=== PATIENT | male | born 2000 ===

== ENCOUNTER 2018-05-26 19:15 | Emergency (ER) | payer OTHER ==
[2018-05-26 21:34] LABS: Hematocrit 46 % (42-52); Hemoglobin 15.8 g/dl (14.0-18.0); Mean Corpuscular HGB Conc 34 g/dl (31-36); Mean Corpuscular Hemoglobin 29 pg (27-31); Mean Corpuscular Volume 85 fL (80-94); Mean Platelet Volume 8.8 um3 (7.4-10.4); Platelet Count 240 10^3/ul (150-450); Red Cell Distribution Width 13 % (10.5-15); White Blood Count 9.9 10^3/ul (3.5-10.8)
[2018-05-26] MEDS ORDERED: NS 0.9% 1000 ML* 1,000 ML IV ONE (23:11)
[2018-05-26] MEDS ORDERED: Meclizine TAB* 12.5 MG PO ONE (23:11)
[2018-05-26] MEDS ORDERED: Ondansetron INJ* 2 MG/ML VIAL IV ONE (23:11)
[2018-05-26] MEDS ORDERED: Pantoprazole IV* 40 MG IV ONE (23:12)
--- NOTE | 2018-05-26 23:34 | ED ---
Neurological HPI - HPI Summary HPI Summary: A 18 y/o male presents to ED c/o dizziness. In the ED room, the patient has a pulse of 72 BPM, O2 saturation of 100% and blood pressure of 129/79. As per triage, "Pt states since waking up on Thursday after drinking he has been dizzy without nv. Mild headache. States hes been unable to eat. Dizziness not resolving". According to the patient, he was drinking Thursday and the next day he felt very dizzy. Since then the symptoms has not gone. He stated that he has appetite changes as he does not feel good after eating. Denies any vomiting or fever. He states that when he turns his head he experiences dizziness and cannot focus on anything. - History of Current Complaint Chief Complaint: EDDizziness Stated Complaint: DIZZY/NO APPETITE Time Seen by Provider: 05/26/18 22:59 Hx Obtained From: Patient Onset/Duration: Sudden Onset, Started days ago, Still Present Timing: Constant Current Severity: None Number of Seizures: 0 Pain Intensity: 2 Pain Scale Used: 0-10 Numeric Character: Dizzy Aggravating: Nothing Alleviating: Nothing Associated Signs and Symptoms: Positive: Negative - Allergy/Home Medications Allergies/Adverse Reactions: Allergies Allergy/AdvReac Type Severity Reaction Status Date / Time No Known Allergies Allergy Verified 05/26/18 19:23 PMH/Surg Hx/FS Hx/Imm Hx Endocrine/Hematology History: Denies: Hx Diabetes Cardiovascular History: Denies: Hx Hypertension Respiratory History: Denies: Hx Asthma - Surgical History Surgery Procedure, Year, and Place: Inguinal Hernia Infectious Disease History: No Infectious Disease History: Denies: Traveled Outside the [place] in Last 30 Days - Family History Known Family History: Positive: Diabetes, Other - POSITIVE: Breast Cancer - Social History Occupation: Student Alcohol Use: Occasionally Smoking Status (MU): Current Every Day Smoker Type: Cigarettes Review of Systems Negative: Fever Positive: Other - POSITIVE: Appetite changes. Negative: Vomiting, Nausea Neurological: Other - POSITIVE: Dizziness Positive: Headache All Other Systems Reviewed And Are Negative: Yes Physical Exam - Summary Physical Exam Summary: VITAL SIGNS: Reviewed. GENERAL: Patient is a well-developed and nourished male who is lying comfortable in the stretcher. Patient is not in any acute respiratory distress. HEAD AND FACE: No signs of trauma. No ecchymosis, hematomas or skull depressions. No sinus tenderness. EYES: PERRLA, EOMI x 2, No injected conjunctiva, no nystagmus. EARS: Hearing grossly intact. Ear canals and tympanic membranes are within normal limits. MOUTH: Oropharynx within normal limits. Pharyngeal erythema with no oxidate. NECK: Supple, trachea is midline, no adenopathy, no JVD, no carotid bruit, no c- spine tenderness, neck with full ROM. CHEST: Symmetric, no tenderness at palpation LUNGS: Clear to auscultation bilaterally. No wheezing or crackles. CVS: Regular rate and rhythm, S1 and S2 present, no murmurs or gallops appreciated. ABDOMEN: Soft, non-tender. No signs of distention. No rebound no guarding, and no masses palpated. Bowel sounds are normal. EXTREMITIES: FROM in all major joints, no edema, no cyanosis or clubbing. NEURO: Alert and oriented x 3. No acute neurological deficits. Speech is normal and follows commands. Vertigo induced with head movement SKIN: Dry and warm Triage Information Reviewed: Yes Vital Signs On Initial Exam: Initial Vitals Temp Pulse Resp BP Pulse Ox 98.9 F 68 15 135/70 100 05/26/18 19:21 05/26/18 19:21 05/26/18 19:21 05/26/18 19:21 05/26/18 19:21 Vital Signs Reviewed: Yes Diagnostics - Vital Signs Vital Signs Temp Pulse Resp BP Pulse Ox 05/26/18 22:17 98.2 F 66 15 112/74 100 05/26/18 19:21 98.9 F 68 15 135/70 100 - Laboratory Lab Results: Lab Results 05/26/18 05/26/18 Range/Units 21:29 21:29 WBC 9.9 (3.5-10.8) 10^3/ul RBC 5.40 (4.00-5.40) 10^6/ul Hgb 15.8 (14.0-18.0) g/dl Hct 46 (42-52) % MCV 85 (80-94) fL MCH 29 (27-31) pg MCHC 34 (31-36) g/dl RDW 13 (10.5-15) % Plt Count 240 (150-450) 10^3/ul MPV 8.8 (7.4-10.4) um3 Sodium 139 (135-145) mmol/L Potassium 3.7 (3.5-5.0) mmol/L Chloride 106 (101-111) mmol/L Carbon Dioxide 29 (22-32) mmol/L Anion Gap 4 (2-11) mmol/L BUN 12 (6-24) mg/dL Creatinine 0.89 (0.67-1.17) mg/dL Est GFR ( Amer) 131.9 (>60) Est GFR (Non-Af Amer) 109.0 (>60) BUN/Creatinine Ratio 13.5 (8-20) Glucose 108 H (70-100) mg/dL Calcium 9.6 (8.6-10.3) mg/dL Total Bilirubin 0.40 (0.2-1.0) mg/dL AST 17 (13-39) U/L ALT 13 (7-52) U/L Alkaline Phosphatase 49 (34-104) U/L Total Protein 7.1 (6.4-8.9) g/dL Albumin 4.7 (3.2-5.2) g/dL Globulin 2.4 (2-4) g/dL Albumin/Globulin Ratio 2.0 (1-3) Result Diagrams: 05/26/18 21:29 05/26/18 21:29 Lab Statement: Any lab studies that have been ordered have been reviewed, and results considered in the medical decision making process. Course/Dx - Course Course Of Treatment: A 18 y/o male presents to ED c/o dizziness. In the ED room , the patient has a pulse of 72 BPM, O2 saturation of 100% and blood pressure of 129/79. No laboratory scans were done. In the ED course, the patient recieved Protonix, Antivert, Zofran and IV fluids. Patient will be discharged with a diagnosis of benign positional vertigo. Patient is to follow up with PCP in 1-2 days. Patient is agreeable with this plan. - Diagnoses Provider Diagnoses: Benign positional vertigo Discharge - Sign-Out/Discharge Documenting (check all that apply): Patient Departure - DISCHARGE - Discharge Plan Condition: Stable Disposition: HOME Prescriptions: Meclizine HCl [Travel-Ease] 25 mg PO TID PRN #20 tablet PRN Reason: Dizziness Patient Education Materials: Vertigo (ED) Referrals: [facility] [Outside] - 2 Days Additional Instructions: FOLLOW UP WITH PRIMARY CARE IN 1-2 DAYS. RETURN TO ED FOR ANY NEW OR WORSENING SYMPTOMS. - Attestation Statements Document Initiated by Scribe: Yes Documenting Scribe: Jimbo King Provider For Whom Scribe is Documenting (Include Credential): Lisa Zelaya MD Scribe Attestation: Jimbo Soares, scribed for Lisa Zelaya MD on 05/27/18 at 0047.
[2018-05-27 01:00] VITALS: BP 111/57
== END 2018-05-27 01:08 | disposition home or self-care (01) ==
LOC: ED 19:15
DX: H81.10 Benign paroxysmal vertigo, unspecified ear (principal); R51 Headache; R42 Dizziness and giddiness; F17.210 Nicotine dependence, cigarettes, uncomplicated
CPT/HCPCS: 36415; 80053; 85027; 96365; 96366; 99283; A9270-GY; J2405

== ENCOUNTER 2018-07-14 11:31 | Emergency (ER) | payer OTHER ==
[2018-07-14] MEDS ORDERED: methylPREDNISolone 125 MG* 2 ML VIAL IV ONE (12:48)
[2018-07-14] MEDS ORDERED: NS 0.9% 1000 ML* 2,000 ML IV ONE (12:48)
[2018-07-14] MEDS ORDERED: Ketorolac INJ* 30 MG/ML 1 ML VIAL IV ONE (12:48)
--- NOTE | 2018-07-14 12:49 | ED ---
Influenza-Like Illness - HPI Summary HPI Summary: This pt is a 18 y/o male presenting to [facility] c/o fever, ear pain, sore throat, cough since 4 days ago. Pt additionally reports fatigue, headache, pain with swallowing. He notes his symptoms began 4 days ago. He went to [facility] 2 days ago and was tested for the flu that resulted negative. Pt since then has been taken Tylenol with mild relief, but states his fever stays around 100 F. He reports decreased PO intake since yesterday secondary to sore throat with swallowing. Denies chest pain, SOB, neck pain, nuchal rigidity. Denies any PMHx. - History of Current Complaint Chief Complaint: EDFluSymptoms Time Seen by Provider: 07/14/18 12:30 Hx Obtained From: Patient Onset/Duration: Lasting Days - 4, Still Present Severity: Moderate Associated Signs & Symptoms: Fever, F/C, Cough, Sore Throat, Headache - Allergy/Home Medications Allergies/Adverse Reactions: Allergies Allergy/AdvReac Type Severity Reaction Status Date / Time No Known Allergies Allergy Verified 07/14/18 11:51 Home Medications: Home Medications Acetaminophen [Tylenol Extra Strength] 1,000 mg PO Q6HR PRN 07/14/18 [History Confirmed 07/14/18] PMH/Surg Hx/FS Hx/Imm Hx Endocrine/Hematology History: Denies: Hx Diabetes Cardiovascular History: Denies: Hx Hypertension Respiratory History: Denies: Hx Asthma - Surgical History Surgery Procedure, Year, and Place: Inguinal Hernia - Immunization History Immunizations Up to Date: Yes Infectious Disease History: No Infectious Disease History: Denies: Traveled Outside the [place] in Last 30 Days - Family History Known Family History: Positive: Diabetes, Other - POSITIVE: Breast Cancer - Social History Alcohol Use: Occasionally Substance Use Type: Reports: None Smoking Status (MU): Former Smoker Type: Cigarettes Review of Systems Constitutional: Other - POS: decreased PO intake Positive: Fever, Fatigue Positive: Sore Throat, Ear Ache - bilateral Negative: Chest Pain Positive: Cough. Negative: Shortness Of Breath Negative: Other - neck pain or nuchal rigidity Positive: Headache All Other Systems Reviewed And Are Negative: Yes Physical Exam - Summary Physical Exam Summary: Appearance: Well appearing, no pain distress Skin: warm, dry, reflects adequate perfusion Head/face: normal Eyes: EOMI, CHENTE ENT: Pharynx is red and swollen. Right tonsil is enlarged. Left TM is red and bulging. Dry mucous membranes. Neck: supple, nontender Respiratory: CTA, breath sounds present Cardiovascular: Tachycardic, pulses symmetrical Abdomen: nontender, soft Musculoskeletal: normal, strength/ROM intact Neuro: normal, sensory motor intact, A&Ox3 Triage Information Reviewed: Yes Vital Signs On Initial Exam: Initial Vitals Temp Pulse Resp BP Pulse Ox 100.2 F 112 18 109/46 100 07/14/18 11:47 07/14/18 11:47 07/14/18 11:47 07/14/18 11:47 07/14/18 11:47 Vital Signs Reviewed: Yes - [place] Coma Scale Best Eye Response: 4 - Spontaneous Best Motor Response: 6 - Obeys Commands Best Verbal Response: 5 - Oriented Coma Scale Total: 15 Diagnostics - Vital Signs Vital Signs Temp Pulse Resp BP Pulse Ox 07/14/18 11:47 100.2 F 112 18 109/46 100 - Laboratory Result Diagrams: 07/14/18 13:12 07/14/18 13:12 Lab Statement: Any lab studies that have been ordered have been reviewed, and results considered in the medical decision making process. - Radiology Chest XR Radiology Interpretation Completed By: Radiologist Summary of Radiographic Findings: IMPRESSION: No active cardiopulmonary disease. Dr. Pettit has reviewed this report. - CT Brain CT CT Interpretation Completed By: Radiologist Summary of CT Findings: IMPRESSION: No acute intracranial pathology. Dr. Pettit has reviewed this report. Re-Evaluation - Re-Evaluation First Eval Re-Evaluation Time: 13:54 Change: Improved Comment: Pt reports feeling better with fluids. Second Eval Re-Evaluation Time: 14:32 Comment: Pt agrees with brain CT. Third Eval Re-Evaluation Time: 15:39 Comment: Pt declines lumbar puncture. He was given strict return to ED instructions. Flu Symptom Course/Dx - Course Assessment/Plan: Pt is a 18 y/o male who presents with fever, ear pain, sore throat, cough since 4 days ago. Pt additionally reports fatigue, headache, pain with swallowing. He notes his symptoms began 4 days ago. He went to [facility] 2 days ago and was tested for the flu that resulted negative. Pt since then has been taken Tylenol with mild relief, but states his fever stays around 100 F. He reports decreased PO intake since yesterday secondary to sore throat with swallowing. Denies chest pain, SOB, neck pain, nuchal rigidity. Blood work , rapid strep test, Chest XR, brain CT were obtained. Radid strep test is negative. Chest XR shows no active cardiopulmonary disease. Brain CT shows no acute intracranial pathology. In the ED course the pt was given IV fluids, Toradol, Solu-medrol. Pt declines lumbar puncture at present. He will be discharged home with follow up from PCP. Pt was given prescriptions for Motrin and Augmentin. Pt was instructed to return to the ED for any worsening or new symptoms. - Diagnoses Differential Diagnosis/HQI/PQRI: Positive: Pneumonia, Upper Respiratory Infection, Other - sepsis meningitis Provider Diagnoses: Otitis media, Fever Discharge - Sign-Out/Discharge Documenting (check all that apply): Patient Departure - Discharge home - Discharge Plan Condition: Stable Disposition: HOME Prescriptions: Amoxicillin/Clavulanate TAB* [Augmentin TAB 875*] 875 mg PO BID #20 tab Ibuprofen TAB* [Motrin TAB* 600 MG] 600 mg PO Q8H PRN #20 tab MDD 3 PRN Reason: Pain Patient Education Materials: Fever in Adults (ED), Ear Infection (ED) Referrals: [facility] [place] [Primary Care Provider] - Additional Instructions: Please follow up with your primary care provider in 3 days. RETURN TO THE ED FOR ANY WORSENING OR NEW SYMPTOMS. - Billing Disposition and Condition Condition: STABLE Disposition: Home - Attestation Statements Document Initiated by Dima: Yes Documenting Scribe: Lois Lewis Provider For Whom Dima is Documenting (Include Credential): Сергей Pettit MD Scribe Attestation: Lois Soares, scribed for Сергей Pettit MD on 07/14/18 at 1613. Scribe Documentation Reviewed: Yes Provider Attestation: The documentation as recorded by the Lois garcia accurately reflects the service I personally performed and the decisions made by Сергей poe MD Status of Scribe Document: Viewed
[2018-07-14 13:25] LABS: Hematocrit 42 % (42-52); Hemoglobin 14.2 g/dl (14.0-18.0); Mean Corpuscular HGB Conc 34 g/dl (31-36); Mean Corpuscular Hemoglobin 29 pg (27-31); Mean Corpuscular Volume 85 fL (80-94); Platelet Count 229 10^3/ul (150-450); Red Cell Distribution Width 13 % (10.5-15)
[2018-07-14 13:32] LABS: INR 1.48 (0.77-1.02)
[2018-07-14 13:49] LABS: ABS Basophils 0.1 10^3/ul (0-0.2); ABS Eosinophils 0 10^3/ul (0-0.6); ABS Lymphocytes 2.3 10^3/ul (1.0-4.8); ABS Monocytes 2.3 10^3/ul (0-0.8); ABS Neutrophils 10.3 10^3/ul (1.5-7.7); ABS Nucleated RBC 0 10^3/ul; Eosinophil % 0.2 %; Lymphocyte % 15.4 %; Nucleated Red Blood Cells % 0.1
[2018-07-14] MEDS ORDERED: Amoxicillin/Clavulanate TAB* 875 MG PO ONE (15:40)
[2018-07-14 15:47] VITALS: BP 116/65
== END 2018-07-14 15:46 | disposition home or self-care (01) ==
LOC: ED 11:31
DX: H66.90 Otitis media, unspecified, unspecified ear (principal); R50.9 Fever, unspecified; Z87.891 Personal history of nicotine dependence
CPT/HCPCS: 36415; 70450; 71046; 80053; 83605; 85025; 85610; 85730; 87040; 87651; 96361; 96374; 96375; 99283; A9270-GY; J1885; J2930